=== PATIENT | female | born 1990 | race Caucasian/White ===

== ENCOUNTER 2020-04-07 15:34 | Emergency (ER) | payer OTHER ==
--- NOTE | 2020-04-07 15:37 | PDOC ---
History of Present Illness - General Chief Complaint: Pain Stated Complaint: ABDOMINAL CRAMPING NAUSEA Time Seen by Provider: 04/07/20 15:36 - History of Present Illness Initial Comments: 04/07/20 15:57 Chief complaint: Abdominal pain HPI: Crampy mid abdominal pain since yesterday morning. Intermittent. Today became more right-sided. Nausea but no vomiting. One episode of loose stool yesterday afternoon. Has not felt like eating. Review of systems: No fever/chills, URI symptoms, sore throat, cough, chest pain, shortness of breath, urinary tract symptoms, vaginal bleeding or discharge. Remainder of systems reviewed and negative Past medical history: Menses regular. Last menses 3 weeks ago. No missed periods. On control pills. No serious medical or surgical illnesses past or present. Mild mood disorder on Zoloft. 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 Occasional social alcohol, none recently. Has not eaten out or had food delivery in over 1 week. Family history: Reviewed and noncontributory Physical exam: Alert and oriented well-developed well-nourished moderate distress intermittently due to mid abdominal cramping pain. Cooperative Temperature 100 degrees, remainder vital signs normal No pallor or icterus. PERRLA, conjunctivae clear. ENT clear Neck supple without bruit mass or nodes Lungs clear, full breath sounds bilaterally CV S1-S2 normal without murmur rub or gallop pulses full and symmetric no JVD or edema no bruits Abdomen nondistended. Bowel sounds normal. Soft without mass organomegaly. There is mild periumbilical tenderness to palpation and more significant tenderness to deep palpation in the the right lower quadrant but there is no guarding or rebound Extremities no CCE Skin clear, no rash, adequate turgor wet mucous membranes Neurological intact Impression: Most consistent with viral gastroenteritis, possible early appendicitis, less likely UTI or ovarian cyst/pelvic infection. Plan: UA, test, CBC and chemistries, further evaluation depending on results. Past History - Medical History Allergies/Adverse Reactions: Allergies Allergy/AdvReac Type Severity Reaction Status Date / Time No Known Allergies Allergy Unverified 04/07/20 15:36 Home Medications: Ambulatory Orders Norethindrone-E.estradiol-Iron [Junel Fe 24 Tablet] 1 each PO DAILY 09/23/20 Sertraline HCl [Zoloft] 100 mg PO HS 04/07/20 Discharge - Discharge Information Condition: Stable - Follow up/Referral - Patient Discharge Instructions - Post Discharge Activity
[2020-04-07 15:46] VITALS: BMI 20.3
[2020-04-07 16:29] LABS: BASO % 0.4 % (0-2.0); EOS % 0.8 % (0-4.5); HEMATOCRIT 38.6 % (32.4-45.2); HEMOGLOBIN 13.1 GM/dl (10.7-15.3); LYMPH % 26.2 % (8-40); MCH 31.5 pg (25.7-33.7); MCHC 33.9 g/dl (32.0-36.0); MEAN CELL VOLUME 92.9 fl (80-96); MEAN PLT VOLUME 7.8 fl (7.5-11.1); MONO % 5.2 % (3.8-10.2); NEUT % 67.4 % (42.8-82.8); PLATELET COUNT 249 K/MM3 (134-434); RBC 4.16 M/mm3 (3.60-5.2); RDW 12.4 % (11.6-15.6); WHITE BLOOD COUNT 7.7 K/mm3 (4.0-10.8)
[2020-04-07 16:41] LABS: ALBUMIN 4.3 g/dl (3.4-5.0); BILIRUBIN,TOTAL 0.7 mg/dl (0.2-1); CALCIUM 9.6 mg/dl (8.5-10); CREATININE 0.7 mg/dl (0.55-1.3); POTASSIUM 3.8 mmol/L (3.5-5.1); TOT PROT 7.6 g/dl (6.4-8.2)
--- NOTE | 2020-04-07 19:28 | PDOC ---
*Physical Exam - Vital Signs Last Vital Signs Temp Pulse Resp BP Pulse Ox 100 F H 85 16 123/84 100 04/07/20 15:35 04/07/20 15:35 04/07/20 15:35 04/07/20 15:35 04/07/20 15:35 ED Treatment Course - LABORATORY CBC & Chemistry Diagram: 04/07/20 16:10 04/07/20 15:52 - ADDITIONAL ORDERS Additional order review: Laboratory Results 04/07/20 04/07/20 04/07/20 16:10 16:10 16:10 Sodium Potassium Chloride Carbon Dioxide Anion Gap BUN Creatinine Est GFR (CKD-EPI)AfAm Est GFR (CKD-EPI)NonAf Random Glucose Calcium Total Bilirubin AST ALT Alkaline Phosphatase Total Protein Albumin Lipase 204 Urine Color Yellow Urine Appearance Clear Urine pH 7.0 Urine Protein Negative Urine Glucose (UA) Negative Urine Ketones Negative Urine Blood Negative Urine Nitrite Negative Urine Bilirubin Negative Urine Urobilinogen 0.2 Ur Leukocyte Esterase Negative Urine HCG, Qual Negative 04/07/20 15:52 Sodium 136 Potassium 3.8 Chloride 102 Carbon Dioxide 24 Anion Gap 10 BUN 8.0 Creatinine 0.7 Est GFR (CKD-EPI)AfAm 135.70 Est GFR (CKD-EPI)NonAf 117.08 Random Glucose 87 Calcium 9.6 Total Bilirubin 0.7 AST 22 ALT 16 Alkaline Phosphatase 52 Total Protein 7.6 Albumin 4.3 Lipase Urine Color Urine Appearance Urine pH Urine Protein Urine Glucose (UA) Urine Ketones Urine Blood Urine Nitrite Urine Bilirubin Urine Urobilinogen Ur Leukocyte Esterase Urine HCG, Qual 04/07/20 16:10 RBC 4.16 MCV 92.9 MCHC 33.9 RDW 12.4 MPV 7.8 Neutrophils % 67.4 Lymphocytes % 26.2 Monocytes % 5.2 Eosinophils % 0.8 Basophils % 0.4 ED Progress Note - Progress Note Progress Note: Care of this patient received from Dr. Vines Abdominal/pelvic CT with contrast performed and interpreted by Dr. Macdonald of radiology staff: No obvious direct or indirect sign of acute appendicitis seen. Only 2 findings were small amount of free fluid in the pelvis and 0.6 cm hypodense area in the liver. Results discussed with the patient. Although she has no previous history of ovarian cyst, will treat as presumed ruptured ovarian cyst. Patient will take her own ibuprofen at home (Toradol offered but patient deferred) and use local warmth to the lower abdomen as needed. She should return to the ER if she has any worsening pain, fever, vomiting. 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 Also, CT evidence of small hypodense area in the liver, likely cyst, also discussed with the patient. She will follow-up with her PMD. Copy of the CT interpretation given to the patient. Discharge - Discharge Information Problems reviewed: Yes Clinical Impression/Diagnosis: Abdominal pain Qualifiers: Abdominal location: right lower quadrant Qualified Code(s): R10.31 - Right lower quadrant pain Condition: Stable Disposition: HOME - Follow up/Referral - Patient Discharge Instructions Patient Printed Discharge Instructions: DI for Ovarian Cyst Additional Instructions: Ibuprofen/naproxen/acetaminophen as needed for pain Local warmth (hot water bottle or heating pad on low) to area of pain Rest; drink plenty of water Call your chisel grinder and general medical doctor arrange follow-up within the next 5 days Return to ER if you have persistent severe pain or develop fever/vomiting - Post Discharge Activity
[2020-04-07 19:45] VITALS: BP 115/70; PULSE 73; TEMP 99.1
== END 2020-04-07 20:28 | disposition home or self-care (01) ==
LOC: FER 15:34
DX: R10.31 Right lower quadrant pain (principal)
CPT/HCPCS: 36415; 74177-TC; 80053; 81003; 83690; 84703; 85025; 99284-25; Q9967